=== PATIENT | female | born 1985 | race Hispanic/Latino ===

== ENCOUNTER 2024-11-13 00:09 | Emergency (ER) | payer SELFPAY ==
[2024-11-13 00:16] VITALS: BP 138/92; PULSE 103; RESP 18; TEMP 36.8; O2SAT 99; BMI 20.9
[2024-11-13] MEDS: PROPARACAINE 0.5% OPHTH SOL 1 DROPS EYE-LEFT (00:26)
[2024-11-13] MEDS: FLUORESCEIN 1 MG STRIP EYE-BOTH (00:27)
--- NOTE | 2024-11-13 00:27 | ED_ITS ---
HPI - General Adult General Chief complaint: Eye Problems Stated complaint: spryaed chemical in eyes Time Seen by Provider: 11/13/24 00:21 Source: patient Mode of arrival: Ambulatory History of Present Illness HPI narrative: Patient is a 39-year-old female. Does not wear glasses or contact lenses. No prior eye surgeries who is here for evaluation of getting a chemical in her left eye. She was at work at the time. It was a cleaning solution. She did wash her eye had an ice station prior to arrival. She reports discomfort and tearing to her left eye. No other injuries from the event although her skin on her face to gets bladder with the chemical as well. Related Data Previous Rx's Medication Instructions Recorded erythromycin 5 mg/gram (0.5 %) eye 0.5 inch EYE-LEFT TID 7 days #3.5 11/13/24 ointment grams Allergies Allergy/AdvReac Type Severity Reaction Status Date / Time No Known Drug Allergies Allergy Verified 11/13/24 00:25 Review of Systems Eyes Eyes: Reports system reviewed and no additional complaints, except as documented ENT Ears, Nose, Mouth, and Throat: Reports system reviewed and no additional complaints, except as documented Integumentary/Breasts Skin/Breast: Reports system reviewed and no additional complaints, except as documented Exam Initial Vital Signs Initial Vital Signs: Vital Signs Temperature 98.2 F 11/13/24 00:16 Pulse Rate 103 H 11/13/24 00:16 Respiratory Rate 18 11/13/24 00:16 Blood Pressure 138/92 H 11/13/24 00:16 Pulse Oximetry 99 11/13/24 00:16 Oxygen Delivery Method Room Air 11/13/24 00:16 Const General: cooperative and comfortable HENRI Head: normal to inspection and normocephalic Eyes Other: Redness to the left eye. Extraocular movements intact. Pupils equal round reactive. Quite a bit of tearing to the left eye. She does have what appears to be a corneal abrasion in the inferior lateral quadrant of the eye. It was not in the visual axis. There was no signs of ulcerations. No signs of open globe. Skin Other: Some blotchy redness to the skin of the area around the left eye. No vesicles. No pustules. No ulcerations. Course Orders Ordered: Discontinued Medications Hydrocodone Bitart/Acetaminophen (Hydrocodone/Acet 5/325 Prepack) 1 bottle MISC DIRECTED ONE Stop: 11/13/24 02:28 Last Admin: 11/13/24 02:39 Dose: 1 bottle Documented By: VENU Erythromycin (Erythromycin Ophth 1 Gm Oint) 1 applic EYE-LEFT NOW ONE Stop: 11/13/24 00:36 Last Admin: 11/13/24 00:58 Dose: 1 applic Documented By: VENU Fluorescein Sodium (Fluorescein 1 Mg Strip) 1 mg EYE-BOTH NOW ONE Stop: 11/13/24 00:22 Last Admin: 11/13/24 00:27 Dose: 1 mg Documented By: VENU Proparacaine HCl (Proparacaine 0.5% Ophth Jennifer) 1 drops EYE-LEFT NOW ONE Stop: 11/13/24 00:22 Last Admin: 11/13/24 00:26 Dose: 1 drop Documented By: VENU Vital Signs Vital signs: Vital Signs - 8 hr 11/13/24 00:16 Temperature 98.2 F Pulse Rate 103 H Respiratory Rate 18 Blood Pressure 138/92 H Pulse Oximetry 99 Oxygen Delivery Method Room Air Medical Decision Making MDM Narrative Medical decision making narrative: Patient irrigated her eye copiously prior to arrival. Initial pH was 7. Had what appeared to be superficial skin irritation/prather to the skin around the eye. Patient was given erythromycin ointment. She was observed in the emergency department. Her discomfort did improve somewhat. The skin irritation around the eye actually improved upon re-evaluation. Repeat pH is 7 as well. She does not wear glasses or contacts. Will send home with erythromycin ointment. Advised the patient that if she starts to develop worsening symptoms or vision changes over the next told 24 hours she does need to be re-evaluated. There was no signs of ulcerations or open globe. Patient expressed understanding and agreement with plan. Discharge Plan Departure Patient Disposition: Home Clinical Impression: Corneal abrasion Instructions: DI for Chemical Eye Burn Activity Restrictions/Additional Instructions: I do recommend the use the antibiotic eye ointment as directed. Contact your primary care doctor for a follow-up. If your symptoms worsen over the next 12- 24 hours to include increasing pain then please return to the emergency department for further evaluation. Prescriptions: New erythromycin 5 mg/gram (0.5 %) ointment 0.5 inch EYE-LEFT TID 7 Days Qty: 3.5 0RF Stand Alone Forms: Patient Portal/API/Survey, Work Release Note
[2024-11-13] MEDS: ERYTHROMYCIN OPHTH 1 GM OINT 1 APPLIC EYE-LEFT (00:58)
[2024-11-13] MEDS: HYDROCODONE/ACET 5/325 PREPACK 1 BOTTLE MISC (02:39)
== END 2024-11-13 02:42 | disposition home or self-care (01) ==
PROVIDERS: Emergency Provider Emergency Medicine
DX: S05.02XA Injury of conjunctiva and corneal abrasion without foreign body, left eye, initial encounter (principal); X58.XXXA Exposure to other specified factors, initial encounter; Y93.9 Activity, unspecified
CPT/HCPCS: 99282

== ENCOUNTER 2025-07-25 19:54 | Emergency (ER) | payer SELFPAY ==
[2025-07-25 20:34] VITALS: BP 139/87; PULSE 73; RESP 16; TEMP 36.4; O2SAT 99; BMI 19.3
--- NOTE | 2025-07-25 21:17 | DI.RAD.S_ITS ---
PROCEDURE: XR HAND RT MIN 3V INDICATIONS: R 2nd finger avulsion/laceration/crush injury TECHNIQUE: 3 views of the hand(s) acquired. COMPARISON: None. FINDINGS: Bones: No fractures or dislocations. Carpal bones are normally aligned. No suspicious bony lesions. Soft tissues: No suspicious soft tissue calcifications. 2nd digit laceration. No radiopaque foreign body. IMPRESSION: No visualized acute fracture or dislocation. However, if clinical concern and/or pain persist, short interval imaging followup in 7-10 days is recommended, as occult injury cannot be definitively excluded. Dictated by: Vira Wagoner M.D. on 07/25/2025 at 21:51 Approved by: Vira Wagoner M.D. on 07/25/2025 at 21:51
[2025-07-26] MEDS: TET,DIPH,PERTUSS(ACELL),VAC/PF 0.5 ML SYRINGE IM (02:13)
[2025-07-26 02:20] VITALS: PULSE 69; O2SAT 99
--- NOTE | 2025-07-26 02:20 | ED_ITS ---
HPI - Wound/Laceration General Chief Complaint: Wound/Laceration Stated Complaint: cut on right pointer finger Time Seen by Provider: 07/25/25 20:10 Source: family Mode of arrival: Family Vehicle History of Present Illness HPI narrative: 40-year-old female right-handed, caught tip of her right index finger in a sprocket device at her place of work about 7:00 p.m. this evening, last tetanus years ago. While performing non work-related activity. Bleeding stopped with local pressure. No other injuries. Specifically does not recall any injury to the face, eyes, neck, chest, abdomen, left upper extremity, bilateral lower extremities, remainder of upper extremity proximal to the right index fingertip, lost her nail in avulsion injury. Related Data Allergies Allergy/AdvReac Type Severity Reaction Status Date / Time No Known Drug Allergies Allergy Verified 07/25/25 20:39 Exam Narrative Exam Narrative: GENERAL: Well-developed patient, in mild distress. HEAD: Atraumatic. Normocephalic. EYES: Pupils equal round and reactive. Extraocular motions intact. No scleral icterus. No injection or drainage. ENT: Nose without bleeding, purulent drainage. Throat without erythema, tonsillar hypertrophy or exudate. Airway patent. NECK: Trachea midline. Non tender CARDIOVASCULAR: Regular rate and rhythm without murmurs, gallops, or rubs. RESPIRATORY: Clear to auscultation. Breath sounds equal bilaterally. No wheezes, rales, or rhonchi. GASTROINTESTINAL: Abdomen soft, non-tender, nondistended. EXTREMITIES: Right index fingertip with absent nailbed, fingertip pad exposed me avulsion, no visible or palpable bone. No suturable lacerations. No other finger/hand injuries obvious. BACK: Nontender without deformity or crepitance. No flank tenderness. NEURO: AOx3. Motor functions grossly nonfocal. SKIN: No rash or erythema of visible areas Initial Vital Signs Initial Vital Signs: Vital Signs Temperature 97.6 F 07/25/25 20:34 Pulse Rate 73 07/25/25 20:34 Respiratory Rate 16 07/25/25 20:34 Blood Pressure 139/87 07/25/25 20:34 Pulse Oximetry 99 07/25/25 20:34 Oxygen Delivery Method Room Air 07/25/25 20:34 Course Orders Ordered: ED Orders 07/25/25 21:17 XR hand RT min 3V Stat Discontinued Medications Bacitracin (Bacitracin Oint 0.9 Gm Pckt) 1 applic TOP NOW ONE Stop: 07/26/25 02:27 Last Admin: 07/26/25 02:36 Dose: 1 applic Documented By: TAYLOR Cefazolin Sodium (Cephalexin 250 Mg Cap Prepack) 1 bottle MISC DIRECTED ONE Stop: 07/26/25 02:26 Last Admin: 07/26/25 02:32 Dose: 500 mg Documented By: TAYLOR Diphtheria/Tetanus/Acell Pertussis (Tet,Diph,Pertuss(Acell),Vac/Pf 0.5 Ml Syringe) 0.5 ml IM .ONCE ONE Stop: 07/25/25 21:57 Last Admin: 07/26/25 02:13 Dose: 0.5 ml Documented By: TAYLOR Tramadol HCl (Tramadol 50 Mg Prepack) 1 bottle MISC DIRECTED ONE Stop: 07/26/25 02:26 Last Admin: 07/26/25 02:36 Dose: 1 bottle Documented By: TAYLOR Vital Signs Vital signs: Vital Signs - 8 hr 07/26/25 02:20 07/26/25 02:30 07/26/25 02:30 Temperature Pulse Rate 69 69 Blood Pressure 126/79 Pulse Oximetry 99 99 Oxygen Delivery Method 07/26/25 02:49 Temperature 97.8 F Pulse Rate Blood Pressure Pulse Oximetry Oxygen Delivery Method Room Air MDM - Wound/Laceration Imaging Data Extremity x-ray #1: Radiologist's Impression: [place] [address] XRay Report Signed Patient: Carolyne Vasquez MR#: [id number] : 1985 Acct:[id number] Age/Sex: 40 / F Date of Service: 07/25/25 Loc: ED Accession Number: [id number] Procedure: XR hand RT min 3V Ordering Provider: Leny Winter MD PROCEDURE: XR HAND RT MIN 3V INDICATIONS: R 2nd finger avulsion/laceration/crush injury TECHNIQUE: 3 views of the hand(s) acquired. COMPARISON: None. FINDINGS: Bones: No fractures or dislocations. Carpal bones are normally aligned. No suspicious bony lesions. Soft tissues: No suspicious soft tissue calcifications. 2nd digit laceration. No radiopaque foreign body. IMPRESSION: No visualized acute fracture or dislocation. However, if clinical concern and/or pain persist, short interval imaging followup in 7-10 days is recommended, as occult injury cannot be definitively excluded. Dictated by: Vira Wagoner M.D. on 07/25/2025 at 21:51 Approved by: Vira Wagoner M.D. on 07/25/2025 at 21:51 [facility] Narrative Medical decision making narrative: 40-year-old female right-handed caught right index fingertip in sprocket device at her place of work, sustaining fingertip/nail skin avulsion to the tip. No other injuries. X-ray sent from triage showed no obvious fracture, see radiology report. Tetanus updated. Nail is missing as his distal tip of your, seems to have tissue around bone, no visible bone, however at increased risk of infection. We will dispensed cephalexin home pack, 1st dose now 500 mg (250 mg tablet 2 tablets now), with prophylaxis next few days' course dispensed. Home pack tramadol to take once she is home in her [place] area. Follow up with PCP wound check advised next couple of days. Consider orthopedic surgery consultation if wound infection developing. Contact information given for local orthopedic surgeon if needed. Discharged home. Return precautions discussed. Discharge Plan Departure Patient Disposition: Home Clinical Impression: Avulsion of fingertip Activity Restrictions/Additional Instructions: Avulsion injury to the right index finger tip/nail/skin. X-ray without obvious fracture. On clinical exam there does not seem to be in obvious visible bone, but there is very small amount of tissue that would be left around the bone to protect the bony phalanx. Hopefully you will not develop any bone infection complications. Wound dressed with antibiotic ointment and nonstick Xeroform dressing with gauze wrap. Wound check advised with your regular doctor in the next couple of days. Consider orthopedic follow up, local contact information provided if your primary care doctor does not feel comfortable managing this type of injury. Cephalexin antibiotic home pack given, 250 mg, with instructions to take 2 tablets by mouth 4 times daily for the next few days. Tramadol pain medication home pack also provided, for pain control if needed. Take [id number] Tyl enol and or Motrin as needed for pain control as well. Tetanus shot update also given in the emergency department. Wound recheck with your regular doctor in 2 days. Return to this/nearest emergency department for any change worsening symptoms or any concerns prior. Referrals: Nathan Benitez MD [Physician, Orthopedic Surgery] Stand Alone Forms: Patient Portal/API
[2025-07-26 02:30] VITALS: BP 126/79; PULSE 69; O2SAT 99
[2025-07-26] MEDS: BACITRACIN OINT 0.9 GM PCKT 1 APPLIC TOP (02:36)
--- NOTE | 2025-07-26 02:48 | PC.NURSE ---
pt's finger wrapped with xeroform, abx ointment and tube gauze.
[2025-07-26 02:49] VITALS: TEMP 36.6
== END 2025-07-26 02:49 | disposition home or self-care (01) ==
PROVIDERS: Emergency Provider Emergency Medicine
DX: S61.300A Unspecified open wound of right index finger with damage to nail, initial encounter (principal); W31.89XA Contact with other specified machinery, initial encounter; Y99.0 Civilian activity done for income or pay; Z23 Encounter for immunization
CPT/HCPCS: 73130; 90471; 99283; 90715